=== PATIENT | male | born 1985 | race Caucasian/White ===

== ENCOUNTER 2019-01-27 18:25 | Emergency (ER) | payer MEDICAID ==
[~2019-01-27] VITALS: Ht 188 cm; Wt 109.3 kg
[2019-01-27 18:50] VITALS: BP 138/84; Ht 188 cm; Wt 109.3 kg
== END 2019-01-27 22:31 | disposition home or self-care (01) ==
LOC: ED 18:25
DX: S39.012A Strain of muscle, fascia and tendon of lower back, initial encounter (principal); X58.XXXA Exposure to other specified factors, initial encounter; Y93.89 Activity, other specified; Y92.89 Other specified places as the place of occurrence of the external cause; Y99.8 Other external cause status

== ENCOUNTER 2019-03-04 06:18 | Emergency (ER) | payer MEDICAID ==
[~2019-03-04] VITALS: Ht 188 cm; Wt 109.8 kg
[2019-03-04 06:22] VITALS: Ht 188 cm; Wt 109.8 kg
[2019-03-04 08:01] VITALS: BP 138/85
== END 2019-03-04 08:01 | disposition home or self-care (01) ==
LOC: ED 06:18
DX: F41.9 Anxiety disorder, unspecified (principal); R09.81 Nasal congestion